=== PATIENT | female | born 1985 | race Hispanic/Latino ===

== ENCOUNTER → 2017-07-27 11:28 | Outpatient (CLI) | payer OTHER, SELFPAY ==
[2017-07-27 12:42] LABS: Appearance Urine UA CLEAR; Bilirubin Urine UA NEGATIVE (NEGATIVE); Color Urine UA YELLOW; Glucose Urine UA NEGATIVE (Normal); Ketones Urine UA NEGATIVE (NEGATIVE); Leukocyte Esterase Urine UA NEGATIVE (NEGATIVE); Nitrite Urine UA Negative (Negative); Occult Blood Urine UA NEGATIVE (Negative); Protein Urine UA NEGATIVE (Negative); Specific Gravity Urine UA 1.025 (1.000-1.035); Urobilinogen Urine UA 0.2 E.U./dL (0.2); pH Urine UA 5.5 (4.5-8.0)
[2017-07-27 12:58] LABS: Squamous Epithelial Cell Urine 1-5 /HPF
[2017-07-27 12:59] LABS: Bacteria Urine Occasional (0-1); Culture Indicated Urine Cult Not Indicated; RBC Urine 0-1/HPF (0-5/HPF); WBC Urine 0-1/HPF (0-5/HPF)
== END ==
PROVIDERS: PCP Specialist; Visit Provider Specialist
DX: O26.892 Other specified pregnancy related conditions, second trimester (principal); R30.0 Dysuria
CPT/HCPCS: 81001

== ENCOUNTER → 2017-08-16 10:32 | Outpatient (CLI) | payer OTHER, SELFPAY ==
[2017-08-23 11:10] LABS: Calc Gestational Age 19.6; Cigarette Smoker N; Donated Egg NOT GIVEN; Donor Egg Age NOT GIVEN; Estriol, Free 1.47 ng/mL; Inhibin A, Dimeric 147 pg/mL; Maternal Weight 152 lbs; Number of Fetuses NOT GIVEN; Previous Pregnancy Down Syndro NOT GIVEN; hCG, MoM 1.19; hCG, Serum 23.9 IU/mL
== END ==
PROVIDERS: PCP Specialist; Visit Provider Specialist
DX: Z36.9 Encounter for antenatal screening, unspecified (principal)
CPT/HCPCS: 36415; 82105; 82677; 84702; 86336

== ENCOUNTER → 2017-08-19 09:18 | Outpatient (CLI) | payer OTHER, SELFPAY ==
--- NOTE | 2017-08-19 09:19 | DI.US.S_ITS ---
PROCEDURE: US OB >= 14 WEEKS FETUS INDICATIONS: 20 WEEK ANATOMIC SURVEY OUTSIDE/PRIOR DATING DATA: Last menstrual period (LMP): 03/31/17. LMP-based estimated date of delivery (AYANNA): 01/05/18. First dating scan (date and location): 06/16/17. Estimated date of delivery (AYANNA) from first dating scan: . TECHNIQUE: Real-time scanning was performed of the fetus, with image documentation and biometric measurements. COMPARISON: [facility], , OB >= 14 WEEKS FETUS, 08/16/2017, 9:59. FINDINGS: General: A single living intrauterine gestation is present. Presentation: Breech. Placenta: Placental position is posterior, without previa. Amniotic fluid index: 14.1 cm, normal range is 5-24 cm. heart rate: 152 beats per minute. Maternal cervical canal: 3.9 cm long. Normal lower limit is 2.5 cm. biometrics: Biparietal diameter: 4.7 cm 20 weeks one day Head circumference: 17.8 cm 20 weeks 2 days Abdominal circumference: 15.4 cm 20 weeks 4 days Femur length: 3.0 cm 19 weeks one day Estimated gestational age from initial scan: 20 weeks 2 days Composite gestational age from present scan: 20 weeks zero days Estimated weight and percentile: 323 g 28th percentile Measurement variability for biometric dating: +/- 7 days from 14 weeks to 15 weeks 6 days gestation, +/- 10 days from 16 weeks to 21 weeks 6 days gestation, +/- 2 weeks from 22 weeks to 27 weeks 6 days gestation, +/- 3 weeks for 28 weeks gestation or later. weight reference: 4500 g or EFW >90/95% is considered macrosomia or large for gestational age. EFW <10% is small for gestational age. EFW 5% or less is considered intra-uterine growth restriction. Anatomic survey: Neuro: Ventricles are non-dilated at less than 10 mm. Cisterna magna is normal at 3-11 mm. Cerebellum is normal in size and morphology. Nuchal skin fold: Normal at less than 6 mm between 14-21 weeks gestational age. Face: Nose and lips, facial profile are normal. Spine: No evidence for spina bifida. Heart: 4-chambered heart is present, with normal ventricular outflow tracts. Diaphragm: Diaphragm is intact. Stomach: Left-sided stomach is present. Kidneys: No hydronephrosis. Normal is less than 5 mm in 2nd trimester, less than 7 mm in 3rd trimester. Cord: 2-vessel cord has orthotopic insertion. Bladder: Normal in size. Extremities: All 4 extremities identified. IMPRESSION: 1. Single live intrauterine with ultrasound gestational age today of 20 weeks zero days compared to 20 weeks 2 days from initial ultrasound. Ultrasound AYANNA is unchanged and 01/04/18. 2. Anatomy is within normal limits. Two-vessel cord is noted. Dictated by: Isabelle Decker M.D. on 08/19/2017 at 11:24 Approved by: Isabelle Decker M.D. on 08/19/2017 at 11:41
== END ==
PROVIDERS: PCP Specialist; Visit Provider Specialist
DX: Z36.89 Encounter for other specified antenatal screening (principal); Z3A.20 20 weeks gestation of pregnancy
CPT/HCPCS: 76811

== ENCOUNTER → 2017-09-13 10:22 | Outpatient (CLI) | payer OTHER, SELFPAY ==
[2017-09-13 10:28] LABS: Bacteria Urine None Seen; RBC Urine None Seen (0-5/HPF); WBC Urine None Seen (0-5/HPF)
[2017-09-13 11:28] LABS: Appearance Urine UA CLEAR; Bilirubin Urine UA NEGATIVE (NEGATIVE); Color Urine UA YELLOW; Glucose Urine UA NEGATIVE (Normal); Ketones Urine UA NEGATIVE (NEGATIVE); Leukocyte Esterase Urine UA NEGATIVE (NEGATIVE); Nitrite Urine UA Negative (Negative); Occult Blood Urine UA NEGATIVE (Negative); Protein Urine UA NEGATIVE (Negative); Urobilinogen Urine UA 0.2 E.U./dL (0.2); pH Urine UA 6.5 (4.5-8.0)
[2017-09-13 11:37] LABS: Squamous Epithelial Cell Urine 5-10 /HPF
[2017-09-13 11:38] LABS: Culture Indicated Urine Cult Not Indicated
== END ==
PROVIDERS: PCP Specialist; Visit Provider Specialist
DX: Z34.02 Encounter for supervision of normal first pregnancy, second trimester (principal); M54.9 Dorsalgia, unspecified; O26.892 Other specified pregnancy related conditions, second trimester; O99.89 Other specified diseases and conditions complicating pregnancy, childbirth and the puerperium; R10.2 Pelvic and perineal pain
CPT/HCPCS: 81001

== ENCOUNTER → 2017-09-24 14:59 | Outpatient (CLI) | payer OTHER, SELFPAY ==
[2017-09-24 16:51] LABS: Hematocrit 30.9 % (36-46); Hemoglobin 10.9 g/dL (12.0-16.0)
[2017-09-24 17:45] LABS: GTT (PREG) 1 Hour PP 50gm Dose 128 mg/dL (76-139)
== END ==
PROVIDERS: PCP Specialist; Visit Provider Specialist
DX: Z34.02 Encounter for supervision of normal first pregnancy, second trimester (principal)
CPT/HCPCS: 82950; 85014; 85018

== ENCOUNTER 2017-11-19 10:57 | Outpatient (CLI) | payer OTHER, SELFPAY ==
--- NOTE | 2017-11-19 11:36 | PM.OBTRLD ---
Visit Information Visit Information Date of evaluation: 11/19/17 Primary OB Provider: Tania Canchola Reason for Evaluation: Yes non-stress test Comments/Additional reasons for admission: Two vessel umbilical cord [facility] Social History Smoking Status: Never smoker Evaluation Evaluation Baseline heart rate: 120 Variability: Moderate (11-25) monitor accelerations: Present monitor decelerations: Absent Category of Tracing: I Diagnosis, Plan/Disposition Final Diagnosis (1) 33 weeks gestation of : Current Visit: Yes Status: Acute Problem details: Two vessel umbilical cord (2) Normal first confirmed, currently in third trimester: Current Visit: Yes Status: Acute Plan/Disposition Plan: Home with follow-up at her next OB appointment weekly nonstress tests
--- NOTE | 2017-11-19 11:40 | P.TNLD_ITS ---
Visit Information Visit Information Date of evaluation: 11/19/17 Primary OB Provider: Tania Canchola Reason for Evaluation: Yes non-stress test Comments/Additional reasons for admission: Two vessel umbilical cord [facility] Social History Smoking Status: Never smoker Evaluation Evaluation Baseline heart rate: 120 Variability: Moderate (11-25) monitor accelerations: Present monitor decelerations: Absent Category of Tracing: I Diagnosis, Plan/Disposition Final Diagnosis (1) 33 weeks gestation of : Current Visit: Yes Status: Acute Problem details: Two vessel umbilical cord (2) Normal first confirmed, currently in third trimester: Current Visit: Yes Status: Acute Plan/Disposition Plan: Home with follow-up at her next OB appointment weekly nonstress tests
== END 2017-11-19 11:47 | disposition home or self-care (01) ==
LOC: LABOR 11:44 → OB 14:27
PROVIDERS: PCP Specialist; Visit Provider Specialist
DX: O43.893 Other placental disorders, third trimester (principal); Z3A.33 33 weeks gestation of pregnancy
CPT/HCPCS: 59025; G0378; G0379

== ENCOUNTER → 2017-11-25 13:47 | Outpatient (CLI) | payer OTHER, SELFPAY ==
--- NOTE | 2017-11-25 14:54 | P.TNLD_ITS ---
Visit Information Visit Information Date of evaluation: 11/25/17 Primary OB Provider: Tania Canchola Reason for Evaluation: Yes non-stress test non-stress test reason: other (Two vessel umbilical cord) [facility] Social History Smoking Status: Never smoker Evaluation Evaluation Baseline heart rate: 125 Variability: Moderate (11-25) monitor accelerations: Present monitor decelerations: Absent Diagnosis, Plan/Disposition Final Diagnosis (1) Normal first confirmed, currently in third trimester: Current Visit: No Status: Acute (2) Two vessel umbilical cord in [place] , antepartum: Current Visit: Yes Status: Acute Plan/Disposition Plan: Continue weekly nonstress tests and OB visits OB Disposition: home
== END | disposition home or self-care (01) ==
PROVIDERS: PCP Specialist; Visit Provider Specialist
DX: Z34.03 Encounter for supervision of normal first pregnancy, third trimester (principal); O09.899 Supervision of other high risk pregnancies, unspecified trimester
CPT/HCPCS: 59025; G0378; G0379

== ENCOUNTER → 2017-12-06 11:04 | Outpatient (CLI) | payer OTHER, SELFPAY ==
--- NOTE | 2017-12-06 11:49 | PM.OBTRLD ---
Visit Information Visit Information Date of evaluation: 12/06/17 Primary OB Provider: Tania Canchola Reason for Evaluation: Yes non-stress test non-stress test reason: other (Two vessel cord) [facility] Social History Smoking Status: Never smoker Evaluation Evaluation Baseline heart rate: 125 Variability: Moderate (11-25) monitor accelerations: Present monitor decelerations: Absent Contraction Frequency (minutes): 0 Diagnosis, Plan/Disposition Final Diagnosis (1) Two vessel umbilical cord in [place] , antepartum: Current Visit: No Status: Acute (2) Normal first confirmed, currently in third trimester: Current Visit: No Status: Acute (3) 35 weeks gestation of : Current Visit: Yes Status: Acute Plan/Disposition Plan: Reactive nonstress test. Follow-up in 1 week.
== END | disposition home or self-care (01) ==
PROVIDERS: PCP Specialist; Visit Provider Specialist
DX: O43.893 Other placental disorders, third trimester (principal); Z3A.35 35 weeks gestation of pregnancy
CPT/HCPCS: 59025; G0378; G0379

== ENCOUNTER → 2017-12-13 11:25 | Outpatient (CLI) | payer OTHER, SELFPAY ==
--- NOTE | 2017-12-13 12:16 | P.TNLD_ITS ---
Visit Information Visit Information Date of evaluation: 12/13/17 Primary OB Provider: Tania Canchola Reason for Evaluation: Yes non-stress test non-stress test reason: other (Two vessel umbilical cord) [facility] Social History Smoking Status: Never smoker Evaluation Evaluation Baseline heart rate: 130 Variability: Moderate (11-25) monitor accelerations: Present monitor decelerations: Absent Diagnosis, Plan/Disposition Final Diagnosis (1) Two vessel umbilical cord in [place] , antepartum: Current Visit: No Status: Acute (2) 36 weeks gestation of : Current Visit: Yes Status: Acute Plan/Disposition Plan: Home with follow-up in 1 week. Routine precautions.
== END | disposition home or self-care (01) ==
PROVIDERS: PCP Specialist; Visit Provider Obstetrics & Gynecology
DX: Z34.03 Encounter for supervision of normal first pregnancy, third trimester (principal); Z3A.36 36 weeks gestation of pregnancy
CPT/HCPCS: 59025; 87653; G0378; G0379

== ENCOUNTER → 2017-12-13 14:46 | Outpatient (CLI) | payer OTHER, SELFPAY ==
[2017-12-14 14:07] LABS: Strep Grp B PCR POS for Grp B Strep
== END ==
PROVIDERS: PCP Specialist; Visit Provider Specialist
DX: Z3A.36 36 weeks gestation of pregnancy (principal)
CPT/HCPCS: 87653

== ENCOUNTER → 2017-12-20 11:18 | Outpatient (CLI) | payer OTHER, SELFPAY | END | disposition home or self-care (01) | PROVIDERS: Family Provider Specialist; PCP Specialist; Visit Provider Specialist | DX: O09.893 Supervision of other high risk pregnancies, third trimester (principal); Z3A.37 37 weeks gestation of pregnancy | CPT/HCPCS: 59025; G0378; G0379 ==

== ENCOUNTER 2017-12-21 10:02 | Observation (INO) | payer OTHER, SELFPAY | END 2017-12-21 12:25 | disposition home or self-care (01) | PROVIDERS: Admitting Provider Specialist; Family Provider Specialist; PCP Specialist; Visit Provider Specialist | DX: Z34.93 Encounter for supervision of normal pregnancy, unspecified, third trimester (principal); Z3A.38 38 weeks gestation of pregnancy | CPT/HCPCS: 59025; 59050; G0378; G0379 ==

== ENCOUNTER 2017-12-23 09:16 | Observation (INO) | payer OTHER, SELFPAY ==
--- NOTE | 2017-12-23 11:37 | PM.OBTRLD ---
Visit Information Visit Information Date of evaluation: 12/23/17 Primary OB Provider: Tania Canchola Reason for Evaluation: Yes rule out labor Vital Signs Vital Signs: Blood pressure 109/71, pulse 79, temperature 98.2? PFSH Social History Smoking Status: Never smoker Evaluation Evaluation Baseline heart rate: 125 Variability: Moderate (11-25) monitor accelerations: Present monitor decelerations: Absent Contraction Frequency (minutes): 2 Uterine Contraction Intensity: Mild Category of Tracing: I Cervical dilation (cm): 1 Cervical effacement (%): 50 station: -2 Diagnosis, Plan/Disposition Final Diagnosis (1) Two vessel umbilical cord in [place] , antepartum: Current Visit: No Status: Acute (2) Normal first confirmed, currently in third trimester: Current Visit: No Status: Acute Plan/Disposition Plan: Patient in prodromal labor will try giving 2 Percocet to help with her pain and get some rest. She will return if her contractions continue OB Disposition: home
[2017-12-23] MEDS: OXYCODONE/ACETAMINOPHEN 5/325 TABLET 2 TAB PO (11:45)
== END 2017-12-23 11:53 | disposition home or self-care (01) ==
PROVIDERS: Admitting Provider Specialist; Family Provider Specialist; PCP Specialist; Visit Provider Specialist
DX: Z34.83 Encounter for supervision of other normal pregnancy, third trimester (principal); Z3A.38 38 weeks gestation of pregnancy
CPT/HCPCS: 59025; G0378; G0379

== ENCOUNTER 2017-12-27 11:00 | Outpatient (CLI) | payer OTHER, SELFPAY | END 2017-12-27 11:42 | disposition home or self-care (01) | LOC: OB 15:36 | PROVIDERS: Family Provider Specialist; PCP Specialist; Visit Provider Specialist | DX: Z34.83 Encounter for supervision of other normal pregnancy, third trimester (principal); Z3A.38 38 weeks gestation of pregnancy | CPT/HCPCS: 59025; G0378; G0379 ==

== ENCOUNTER 2018-01-02 05:45 | Inpatient (IN) | payer OTHER, SELFPAY ==
[2018-01-02] MEDS: LACTATED RINGERS 1,000 ML 100 ML IV ×2 (06:20→08:57)
[2018-01-02] MEDS: PENICILLIN G POTASSIUM 5,000,000 UNIT in DEXTROSE 5% IN WATER 250 ML IV (06:30)
[2018-01-02 06:45] LABS: Add Manual Diff / Slide Review NO; Basophils Percent Auto 0.2 % (0-2); Eosinophils Percent Auto 0.3 % (2-4); Hematocrit 34.5 % (36-46); Hemoglobin 11.8 g/dL (12.0-16.0); Lymphocytes Percent Auto 14.5 % (25-40); Mean Corpuscular HGB Conc 34.2 % (30-36); Mean Corpuscular Hemoglobin 29.9 PG (26-34); Mean Corpuscular Volume 87.4 fL (80-100); Monocytes Percent Auto 3.5 % (3-14); Neutrophils Absolute Auto 9600 /uL (3000-5900); Neutrophils Percent Auto 81.5 % (50-75); Platelet Count 186 X10^3/uL (150-400); Red Blood Cell Count 3.95 X10^6/uL (4.0-5.2); White Blood Cell Count 11.8 X10^3/uL (4.5-11.0)
[2018-01-02 07:23] VITALS: BP 119/75
[2018-01-02] MEDS: ONDANSETRON 4 MG/2 ML INJ IV (08:25)
[2018-01-02] MEDS: OXYTOCIN PREMIX 30 UNIT/500 ML PLAST..BAG IV (09:17)
[2018-01-02 09:46] VITALS: BP 119/75
[2018-01-02] MEDS: PENICILLIN G POTASSIUM 3,000,000 UNIT/50 ML FROZ.PIGGY 100 UNIT IV (11:19)
--- NOTE | 2018-01-02 11:32 | P.HPOB_ITS ---
OB HPI Date/Time Date of admission: 01/02/18 Date Patient Seen: 01/02/18 Time Patient Seen: 11:15 History of Present Condition Chief complaint: evaluation of labor : 1 Para: 0 Estimated Date of Delivery: 01/06/18 Estimated Gestational Age (weeks): 39w3d Narrative: Kathy Bell is a 32 year old at 39w3d who presented with painful contractions. She then had SROM in the bathroom of L&D at 5:45am. The contractions then became much more painful. The pt believes the fluid was clear. No significant vaginal bleeding. She is feeling baby move regularly. History of Present care: good care and initiated at week # (10wks) Dating criteria: LMP confirmed by 1st trimester US Ultrasounds: abnormal US findings Abnormal ultrasound findings: 2 vessel umbilical cord Obstetrical complications: none Narrative: Travel to [place] during . Pt denied any mosquito bites or signs/symptoms of Zika. Declined testing. Preadmission Labs Blood type: O (+) positive -: Antibody screen: negative, GBS status: positive (urine positive for GBS), HBsAG: negative, HIV: negative, HSV 1: negative, HSV 2: negative and RPR/VDLR: negative -: Chlamydia screen: not detected and Gonorrhea screen: not detected -: Rubella: immune and Varicella: immune HCT: 38.9 HCAB: negative PAP: Normal Quad screen: Normal Urine: Group B strep 1 hr GTT: 128 Evaluation Evaluation Baseline heart rate: 125 Variability: Moderate (11-25) monitor accelerations: Present monitor decelerations: Absent Contraction Frequency (minutes): 2 Uterine Contraction Intensity: Strong/Firm Category of Tracing: I Cervical dilation (cm): 5 Cervical effacement (%): 100 station: 0 Laboratory results: Laboratory Tests 01/02/18 01/02/18 06:25 06:25 WBC 11.8 H RBC 3.95 L Hgb 11.8 L Hct 34.5 L MCV 87.4 MCH 29.9 MCHC 34.2 RDW 12.0 Plt Count 186 Neut % (Auto) 81.5 H Lymph % (Auto) 14.5 L [place] % (Auto) 3.5 Eos % (Auto) 0.3 L Baso % (Auto) 0.2 Neut # (Auto) 9600 H Blood Type O Positive Antibody Screen Negative PFSH Social History Smoking Status: Never smoker Meds Home Medications Medication Instructions Recorded Confirmed Type clomiphene citrate 50 mg PO SEE INSTRUCTIONS #5 tab 04/29/17 11/04/17 Rx omeprazole 20 mg capsule,delayed 20 mg PO BID #60 cap 11/10/17 Rx release vitamin-ferrous fumarate 1 cap PO QDAY #90 cap 11/10/17 Rx 65 mg iron-folic acid 1 mg capsule breast pump #1 each 11/19/17 11/19/17 Rx hydroxyzine HCl 25 mg tablet 25 mg PO Q6HP PRN #20 tab 12/20/17 Rx Allergies Allergy/AdvReac Type Severity Reaction Status Date / Time aspirin [ASPIRIN] Allergy Unknown Unverified 11/04/17 15:25 Exam Vital Signs (past 8 hours): - 01/02/18 07:23 01/02/18 09:46 Blood Pressure 119/75 119/75 Narrative Exam Narrative: Gen: NAD, laying comfortably in bed, appears well CV: RRR, no murmurs Resp: clear to auscultation bilaterally Abd: soft, nontender, nondistended Ext: no edema Objective Labs Result Diagrams: 01/02/18 06:25 Labs: Laboratory Results - last 24 hr 01/02/18 01/02/18 06:25 06:25 WBC 11.8 H RBC 3.95 L Hgb 11.8 L Hct 34.5 L MCV 87.4 MCH 29.9 MCHC 34.2 RDW 12.0 Plt Count 186 Neut % (Auto) 81.5 H Lymph % (Auto) 14.5 L [place] % (Auto) 3.5 Eos % (Auto) 0.3 L Baso % (Auto) 0.2 Neut # (Auto) 9600 H Blood Type O Positive Antibody Screen Negative Assessment and Plan (1) Two vessel umbilical cord in [place] , antepartum: Current visit: No Status: Acute (2) Normal first confirmed, currently in third trimester: Current visit: No Status: Acute Plan: Plan: 32yo at 39w3d here in active labor with SROM, clear fluid. complicated by 2-vessel cord with normal genetic screening and testing. GBS positive, has already received adequate prophylaxis. Pitocin initiated due to minimal cervical change with ruptured membranes and contractions slowing. - Expectant management, anticipate - GBS positive, continue penicillin prophylaxis - Continue pitocin for labor augmentation, titrate as tolerated - Epidural for pain control in place and working well - FHT reassuring
--- NOTE | 2018-01-02 16:48 | PM.OBPRVD ---
Delivery date: 01/02/18 Intrapartal events: Deceleration (deep variable decels prior to delivery) Induction method: none Delivery augmentation: pitocin Delivery monitor: external FHT Route of delivery: Episiotomy description: None Laceration description: Perineal - 2nd Degree (right sulcal) Delivery repair: chromic (3-O Chromic) Estimated blood loss (mL): 300 Anesthesia type: Epidural Complications: None Narrative: PROCEDURE: at 39w3d presented in active labor with SROM and was admitted to Labor and Delivery. The patient progressed through the 1st stage over 11 hours. Pain was controlled with an epidural. Pitocin was used to augment labor due to an inadequate contraction pattern. She received a total of 3 doses of penicillin prophylaxis for GBS. The patient progressed through the 2nd stage over 2 hours. During the second stage, the pt did have repeated deep variable decelerations that would return to baseline between contractions with good variability. These improved with position changes and oxygen. The pt delivered a viable female infant with APGARs 7/9 at 16:04 via . Nuchal cord x1 was reduced at the perineum at the time of delivery. The perineum and vagina were inspected with right sulcal and 2nd degree perineal laceration repaired with 3-O Chromic. PREPROCEDURE DIAGNOSIS: Intrauterine at 39w3d 2 vessel umbilical cord GBS positive RH positive POSTPROCEDURE DIAGNOSIS: Intrauterine at 39w3d, delivered Same as preprocedure GBS positive with adequate penicillin prophylaxis ROM APPEARANCE: Clear BABY A DELIVERY TIME: 16:04 BABY A OUTCOME: Viable BABY A WEIGHT: Pending at the time of this note BABY A NUCHAL CORD: x1 BABY A # CORD VESSELS: 2 BABY A CORD GASES OBTAINED: Venous - pH 7.158, pCO2 58.1, base excess -8 PLACENTA DELIVERY TIME: 16:14 PLACENTA APPEARANCE: Intact [facility] Baby 1: gender: Female Presentation: vertex position: Right Occiput Anterior Placenta delivery description: Spontaneous cord vessel description: 2 Vessels score (1 min): 7 score (5 min): 9 Narrative: Baby with spontaneous cry after oral bulb suctioning. Plan for aftercare: Normal care support
[2018-01-02] MEDS: IBUPROFEN 600 MG TABLET PO (21:30)
[2018-01-03] MEDS: HYDROCODONE/ACET 5/325 TABLET 1 TAB PO (03:22)
[2018-01-03] MEDS: DOCUSATE 250 MG CAPSULE PO (08:22)
[2018-01-03] MEDS: IBUPROFEN 600 MG TABLET PO ×2 (08:22→14:20)
[2018-01-03] MEDS: PRENATAL VIT,CALC/IRON/FOLIC 1 TABLET 1 TAB PO (08:22)
--- NOTE | 2018-01-03 08:22 | P.PNOB_ITS ---
Subjective - OB Narrative: The pt reports that she is feeling well this morning. She has some mild perineal pain with urination, but has otherwise remained comfortable. Her lochia is decreasing appropriately. She is with some latch issues , and is using a nipple shield for feeds. She did not get very much sleep last night as the baby wanted to feed all night and was difficult to soothe. She has not yet passed flatus. Date Patient Seen: 01/03/18 Time Patient Seen: 07:50 Exam Narrative Exam Narrative: Gen: NAD, sitting comfortably in bed, appears well CV: RRR, no murmurs Resp: clear to auscultation bilaterally Abd: soft, appropriately tender, fundus firm and below the umbilicus, nondistended, normoactive bowel sounds Ext: no edema Objective Labs Result Diagrams: 01/02/18 06:25 Assessment & Plan (1) Two vessel umbilical cord in [place] , antepartum: Status: Acute Current Visit: No (2) Normal first confirmed, currently in third trimester: Status: Acute Current Visit: No (3) (spontaneous vaginal delivery): Status: Acute Current Visit: Yes Plan Comments: 32yo PPD #1 s/p without complications. Pt doing well thus far. - Normal care - support with consult today Time Spent With Patient Total time spent is greater than 50% in coordination of care (as documented) at patient's floor/unit and/or counseling patient: 25 - 35 minutes
[2018-01-03 15:13] VITALS: BP 112/79; PULSE 81; TEMP 37.6
--- NOTE | 2018-01-03 16:42 | P.DS_ITS ---
Discharge Providers Date of admission: 01/02/18 05:45 Primary care physician: Tania Cnachola MD Consults: 01/02/18 18:14 Consult to [facility] Routine Comment: Discharge provider: Mariza Carbajal MD Discharge Date: 01/03/18 Summary Date Patient Seen: 01/03/18 Time Patient Seen: 07:45 Hospital Course: The patient presented in active labor with SROM. She progressed to complete dilation with Pitocin augmentation. She received adequate GBS prophylaxis with penicillin. The patient had an epidural for pain control. Patient delivered a viable baby girl at 16:04 on 01/02/2018 without complications. A 2nd degree laceration was then repaired. The patient tolerated delivery well. , there are no complications. At the time of discharge the patient was voiding , ambulating, and passing flatus without difficulty. Her lochia was decreasing appropriately. She was breast feeding with the help of a nipple shield. She was seen by while in the hospital. She will follow up with her primary OB, Dr. Canchola, in 6 weeks. Peripartum Data Infant Delivery Method: Natural Vaginal Laceration description: Perineal - 2nd Degree Episiotomy description: None Procedures: Spontaneous vaginal delivery complications: none 1: Gender: Female Disposition of : home Discharge Diagnosis (1) Two vessel umbilical cord in [place] , antepartum: Status: Acute (2) Normal first confirmed, currently in third trimester: Status: Acute (3) (spontaneous vaginal delivery): Status: Acute Status at Discharge Functional status at discharge: independent ambulation Overall status at discharge: patient is progressing back to baseline Time Spent with Patient Total time spent providing and/or coordinating discharge services: Greater than 30 minutes Specific discharge activities: No intercourse for 6 weeks Gradual return to normal activity Objective Labs Result Diagrams: 01/02/18 06:25 Discharge Plan Discharge Plan Patient Disposition: Home Discharge Med Rec/Prescriptions Prescriptions: New acetaminophen 325 mg Tablet 650 mg PO Q6HR PRN (Reason: Pain, Mild (1-3)) Qty: 30 RF: 0 benzocaine-menthol [Dermoplast (with menthol)] 20-0.5 % Aerosol 1 spray Topical Q1HR PRN (Reason: perineal pain) Qty: 15 RF: 0 hydrocodone-acetaminophen 5-325 mg Tablet 1 tab PO Q4HR PRN (Reason: Pain, Moderate (4-6)) Qty: 10 RF: 0 ibuprofen 600 mg Tablet 600 mg PO Q6HR PRN (Reason: Pain, Mild (1-3)) Qty: 30 RF: 0 docusate sodium 250 mg Capsule 250 mg PO DAILY Qty: 30 RF: 0 lanolin [[id number]] Cream 1 applic Topical PRN PRN (Reason: Tenderness) Qty: 15 RF: 0 ferrous gluconate 324 mg (38 mg iron) Tablet 324 mg PO DAILY Qty: 30 RF: 0 Continue vit-iron fum-folic ac [Mynatal] 65 mg iron- 1 mg capsule 1 cap PO QDAY Qty: 90 RF: 2 omeprazole 20 mg capsule,delayed release(DR/EC) 20 mg PO BID Qty: 60 RF: 0 breast pump [Pump In Style Advanced] device .ROUTE .MEDSUPPLY Qty: 1 RF: 0 hydroxyzine HCl 25 mg tablet 25 mg PO Q6HP PRN (Reason: itching) Qty: 20 RF: 6 Discontinued clomiphene citrate 50 MG tablet 50 mg PO SEE INSTRUCTIONS Qty: 5 RF: 2 Follow up/Referrals: Tania Canchola MD [Primary Care Provider] - 6 Weeks (please f/u w/ Dr. Canchola on February 23 at 10am [phone]) Provider Discharge Instructions Diet: Regular Skin/Wound/Dressing Care Report to your healthcare provider any signs of infection, such as:: chills, fever, increased pain and unusual drainage Visit Report/Discharge Packet Instructions: DI for Labor and Delivery, Vaginal Visit Report Forms: Stroke Signs & Symptoms Discharge Data Primary Care Provider: Tania Canchola Attending Provider: Mariza Carbajal Admit Date/Time: 01/02/18 05:45
== END 2018-01-03 18:46 | disposition home or self-care (01) | DRG 807 ==
PROVIDERS: Admitting Provider Family Medicine; Family Provider Specialist; PCP Specialist; Visit Provider Family Medicine
DX: O99.824 Streptococcus B carrier state complicating childbirth (principal); Z37.0 Single live birth; Z3A.39 39 weeks gestation of pregnancy; O70.1 Second degree perineal laceration during delivery; O69.1XX0 Labor and delivery complicated by cord around neck, with compression, not applicable or unspecified; O76 Abnormality in fetal heart rate and rhythm complicating labor and delivery
CPT/HCPCS: 01967; 59050; 59400; 59409; 85025; 86850; 86900; 86901; G0379; J2405; J2540; J2590